=== PATIENT | female | born 1970 | race Caucasian/White ===

== ENCOUNTER 2019-10-09 18:53 | Emergency (ER) | payer OTHER ==
[~2019-10-09] VITALS: Ht 157.5 cm; Wt 61.2 kg
[2019-10-09 18:59] VITALS: Ht 157.5 cm; Wt 61.2 kg
[2019-10-09 19:53] VITALS: BP 139/80
== END 2019-10-09 19:53 | disposition home or self-care (01) ==
LOC: ED 18:53
DX: S61.211A Laceration without foreign body of left index finger without damage to nail, initial encounter (principal); W26.0XXA Contact with knife, initial encounter; Y93.89 Activity, other specified; Y92.89 Other specified places as the place of occurrence of the external cause; Y99.8 Other external cause status
CPT/HCPCS: J2001